=== PATIENT | male | born 1955 | race Caucasian/White ===

== ENCOUNTER 2020-09-05 21:46 | Emergency (ER) | payer OTHER ==
[2020-09-05 22:50] LABS: RED BLOOD COUNT 2.03 M/UL (4.20-5.50); WHITE BLOOD COUNT 15.6 K/UL (4.5-11.0)
[2020-09-05 23:39] LABS: HEMOGLOBIN 6.7 gm/dl (14.0-17.5)
== END 2020-09-06 02:41 | disposition short-term general hospital (02) ==
LOC: ER1 21:46
PROVIDERS: Physician Assistant
DX: E87.2 Acidosis (principal); D64.9 Anemia, unspecified; R10.84 Generalized abdominal pain; U07.1 COVID-19; M54.5 Low back pain; M25.559 Pain in unspecified hip; I25.10 Atherosclerotic heart disease of native coronary artery without angina pectoris; I12.9 Hypertensive chronic kidney disease with stage 1 through stage 4 chronic kidney disease, or unspecified chronic kidney disease; N18.9 Chronic kidney disease, unspecified; Z79.01 Long term (current) use of anticoagulants; Z88.8 Allergy status to other drugs, medicaments and biological substances; Z98.890 Other specified postprocedural states
CPT/HCPCS: 36430; 71250; 80053; 82270; 82550; 82553; 83605; 83690; 83735; 83874; 84484; 85025; 85610; 85730; 86850; 86900; 86901; 86920; 93005; 96374; 99285; J2405; P9016; U0002

== ENCOUNTER → 2020-09-05 | Outpatient (CLI) | payer OTHER ==
[~2020-09-05] MED LIST: AMLODIPINE BESY10 MG PO; ASPIRIN CHEWABL81 MG PO; ATORVASTATIN CA40 MG PO; DEX4 GLUCOSE4 GM PO; ELAVIL 25 MG TA25 MG PO; GLIMEPIRIDE1 MG PO; HYDRALAZINE HCL25 MG PO; LOPRESSOR 25 MG25 MG PO; METOPROLOL SUCC25 MG PO; NITROSTAT0.4 MG SL; PANTOPRAZOLE SO40 MG PO; PEPCID20 MG PO; PLAQUENIL 200200 MG PO; PLETAL 100 MG100 MG PO; PREDNISONE 5 MG5 MG PO; PROTONIX40 MG PO; TOPROL XL25 MG PO; ZOFRAN 4 MG TAB4 MG PO
[2020-09-05 19:23] LABS: RED BLOOD COUNT 2.09 M/UL (4.20-5.50); WHITE BLOOD COUNT 13.9 K/UL (4.5-11.0)
[2020-09-05 19:55] LABS: HEMOGLOBIN 6.8 gm/dl (14.0-17.5)
== END ==
LOC: LAB 19:02
PROVIDERS: Nurse Practitioner Family
DX: I25.10 Atherosclerotic heart disease of native coronary artery without angina pectoris (principal); K21.9 Gastro-esophageal reflux disease without esophagitis; E78.5 Hyperlipidemia, unspecified; F10.94 Alcohol use, unspecified with alcohol-induced mood disorder
CPT/HCPCS: 80053; 82150; 83690; 85025; 87086

== ENCOUNTER → 2020-09-25 | Outpatient (CLI) | payer OTHER ==
[2020-09-25 19:48] LABS: HEMOGLOBIN 7.5 gm/dl (14.0-17.5); RED BLOOD COUNT 2.53 M/UL (4.20-5.50); WHITE BLOOD COUNT 8.5 K/UL (4.5-11.0)
== END ==
LOC: LAB 19:37
PROVIDERS: Nurse Practitioner Family
DX: I25.10 Atherosclerotic heart disease of native coronary artery without angina pectoris (principal); K21.9 Gastro-esophageal reflux disease without esophagitis; E78.5 Hyperlipidemia, unspecified; F10.94 Alcohol use, unspecified with alcohol-induced mood disorder
CPT/HCPCS: 85025